=== PATIENT | male | born 1990 | race Caucasian/White ===

== ENCOUNTER 2018-04-28 10:37 | Emergency (ER) | payer SELFPAY ==
[2018-04-28 11:50] LABS: URINE PH (Dip) POC 6.5 (5.0-8.5)
[2018-04-28 11:50] LABS: URINE BLOOD (Dip) POC 2+ (NEGATIVE); URINE GLUCOSE (Dip) POC Negative (NEGATIVE); URINE KETONES (Dip) POC Negative (NEGATIVE); URINE LEUKOCYTE EST (Dip) POC Negative (NEGATIVE); URINE NITRITE (Dip) POC Negative (NEGATIVE); URINE TOTAL PROTEIN POC 2+ (NEGATIVE)
[2018-04-28] MEDS: HYDROCODONE/APAP (5/325) TAB PO (11:55)
== END 2018-04-28 13:44 | disposition home or self-care (01) ==
LOC: FTE 10:37
DX: S00.81XA Abrasion of other part of head, initial encounter (principal); S40.812A Abrasion of left upper arm, initial encounter; S80.812A Abrasion, left lower leg, initial encounter; S10.91XA Abrasion of unspecified part of neck, initial encounter; S30.811A Abrasion of abdominal wall, initial encounter; F17.210 Nicotine dependence, cigarettes, uncomplicated; V49.49XA Driver injured in collision with other motor vehicles in traffic accident, initial encounter
CPT/HCPCS: 71045; 72040; 72072; 76775; 81003; 99284-25

== ENCOUNTER 2018-04-29 07:44 | Emergency (ER) | payer SELFPAY ==
[2018-04-29] MEDS: ONDANSETRON (ODT) 4 MG TAB ODT (08:18)
[2018-04-29] MEDS: HYDROCODONE/APAP (5/325) TAB PO (08:18)
== END 2018-04-29 09:53 | disposition home or self-care (01) ==
LOC: FTE 07:44
DX: S00.81XA Abrasion of other part of head, initial encounter (principal); F17.210 Nicotine dependence, cigarettes, uncomplicated; R93.0 Abnormal findings on diagnostic imaging of skull and head, not elsewhere classified; V49.40XA Driver injured in collision with unspecified motor vehicles in traffic accident, initial encounter
CPT/HCPCS: 70360; 70450; 99284-25